=== PATIENT | male | born 1995 | race Caucasian/White ===

== ENCOUNTER 2018-11-11 21:14 | Emergency (ER) | payer BC ==
[2018-11-11] MEDS ORDERED: Bacitracin/Neomycin/Polymyxin B Oint 0.9 GM U/D Packet TOP ONE (22:17)
--- NOTE | 2018-11-11 22:21 | EDM.PDOC ---
ED HPI GENERAL MEDICAL PROBLEM - General Chief Complaint: Laceration Stated Complaint: LACERATION Time Seen by Provider: 11/11/18 21:38 Source of Information: Reports: Patient History Limitations: Reports: No Limitations - History of Present Illness INITIAL COMMENTS - FREE TEXT/NARRATIVE: Patient comes to ER with laceration of right little finger secondary to knife. He was cutting potatoes at the time of the injury. No loss of function. Finger has had long standing deformity from an injury sustained while playing sports in high school. Minimal numbness around injury site. No other complaints. Tetanus is up to date. BP elevated upon arrival. Patient anxious about the injury. No history of HTN. Suspect elevated due to stress. Right Finger-Little Pain Score (Numeric/FACES): 1 - Related Data Allergies Allergy/AdvReac Type Severity Reaction Status Date / Time Penicillins Allergy Cannot Verified 11/11/18 21:19 Remember Home Meds: Home Meds . [No Known Home Meds] 11/11/18 [History] Past Medical History - Infectious Disease History Infectious Disease History: Reports: Chicken Pox Social & Family History - Tobacco Use Smoking Status *Q: Never Smoker Second Hand Smoke Exposure: No - Caffeine Use Caffeine Use: Reports: Coffee, Energy Drinks, Soda - Recreational Drug Use Recreational Drug Use: No ED ROS GENERAL - Review of Systems Review Of Systems: ROS reveals no pertinent complaints other than HPI. ED EXAM, SKIN/RASH Exam: See Below Exam Limited By: No Limitations General Appearance: Alert, WD/WN, No Apparent Distress Eye Exam: Bilateral Eye: EOMI, PERRL Throat/Mouth: Normal Voice, No Airway Compromise Head: Atraumatic, Normocephalic Respiratory/Chest: No Respiratory Distress Extremities: Other (laceration right little finger. Has deformity of middle IP involving finger (old), able to move distal IP joint appropriately. 2cm laceration running horizontally from pad of little finger around to lateral side. Bleeding noted, pulsatile. ) Neurological: Alert, Oriented, Normal Cognition, Normal Gait Psychiatric: Normal Affect, Normal Mood Skin: Warm, Dry ED SKIN PROCEDURES - Laceration/Wound Repair Right Distal Digit - 5th (Baby) Lac/Wound length In cm: 2 Appearance: Linear, Clean Distal NVT: Neuro & Vascular Intact, No Tendon Injury Anesthetic Type: Local Local Anesthesia - Lidocaine (Xylocaine): 1% Plain Local Anesthetic Volume: 2cc Skin Prep: Providone-Iodine (Betadine) Exploration/Debridement/Repair: Wound Explored, Explored to Base, Other ( pulsatile bleeding indicated small artery injury) Closed with: Sutures Suture Size: 4-0 # of Sutures: 5 Suture Type: Nylon, Interrupted Suture Size: 4-0 # of Sutures: 4 (multiple attempts needed to try to isolate bleeding arteriole and successfully ligate the vessel) Repaired with: Vicryl Drain Placement: No Sterile Dressing Applied: Nurse Tetanus Status Addressed: Yes Complications: No Course - Vital Signs Last Recorded V/S: Last Vital Signs Temp 36.9 C 11/11/18 21:14 Pulse 97 11/11/18 21:14 Resp 20 11/11/18 21:14 BP 161/83 H 11/11/18 21:14 Pulse Ox 96 11/11/18 21:14 - Orders/Labs/Meds Meds: Medications Discontinued Medications Generic Name Dose Route Start Last Admin Trade Name Natalie PRN Reason Stop Dose Admin Lidocaine HCl 5 ml 11/11/18 21:39 11/11/18 21:43 Xylocaine-Mpf 1% INJECT 11/11/18 21:40 5 ml ONETIME ONE Administration Neomycin/Polymyxin/Bacitracin 1 each 11/11/18 22:17 11/11/18 22:19 Triple Antibiotic Oint TOP 11/11/18 22:18 1 each ONETIME ONE Administration - Re-Assessments/Exams Free Text/Narrative Re-Assessment/Exam: 11/11/18 22:27 Laceration repaired. Wound care reviewed. Departure - Departure Time of Disposition: 22:17 Disposition: Home, Self-Care 01 Condition: Good Clinical Impression: Finger laceration Qualifiers: Encounter type: initial encounter Finger: little finger Damage to nail status: without damage Foreign body presence: without foreign body Laterality: right Qualified Code(s): S61.216A - Laceration without foreign body of right little finger without damage to nail, initial encounter - Discharge Information *PRESCRIPTION DRUG MONITORING PROGRAM REVIEWED*: Not Applicable *COPY OF PRESCRIPTION DRUG MONITORING REPORT IN PATIENT CHENG: Not Applicable Instructions: Laceration Care, Adult, [id number] Forms: ED Department Discharge Additional Instructions: Wound care as discussed. Have sutures removed in 7 days. This can be done for free at the hospital clinic. Follow up as needed if you have any problems or signs of infection.
== END 2018-11-11 22:28 | disposition home or self-care (01) ==
LOC: LL.ED 21:14
DX: S61.216A Laceration without foreign body of right little finger without damage to nail, initial encounter (principal); W26.0XXA Contact with knife, initial encounter; Z88.0 Allergy status to penicillin
CPT/HCPCS: 12001; 99282; J2001